=== PATIENT | male | born 1980 | race Two or more races ===

== ENCOUNTER 2017-01-07 22:16 | Emergency (ER) | payer BC ==
[~2017-01-07 22:16] MED LIST: AMLO10TA4 PO; POTA10TA PO
[2017-01-07 23:09] LABS: BASO # 0.1 x10^3/uL (0.0-0.2); BASO % 1 % (0-3); EOS % 2 % (0-3); HEMATOCRIT 46.5 % (39.0-53.0); HEMOGLOBIN 16.1 g/dL (13.0-17.5); LYMPH # 3.4 x10^3/uL (1.0-4.8); LYMPH % 33 % (24-48); MEAN CORPUSCULAR HEMOGLOBIN 30 pg (25-35); MEAN CORPUSCULAR HGB CONC 35 g/dL (31-37); MEAN CORPUSCULAR VOLUME 88 fL (79-100); MONO % 7 % (0-9); NEUT % 57 % (31-73); PLATELET COUNT 178 x10^3/uL (140-400); RED BLOOD COUNT 5.32 x10^6/uL (4.30-5.70); WHITE BLOOD COUNT 10.3 x10^3/uL (4.0-11.0)
[2017-01-07 23:21] LABS: CALCIUM 8.7 mg/dL (8.5-10.1); CREATININE 1.2 mg/dL (0.7-1.3); GFR 69.3; POTASSIUM 3.2 mmol/L (3.5-5.1)
[2017-01-07 23:24] LABS: BILIRUBIN,URINE NEGATIVE (NEG); GLUCOSE,URINE NEGATIVE (NEG); NITRITE,URINE NEGATIVE (NEG); PH,URINE 7.5; PROTEIN,URINE NEGATIVE (NEG-TRACE)
[2017-01-07 23:27] LABS: ALBUMIN 3.4 g/dL (3.4-5.0); ALBUMIN/GLOBULIN RATIO 0.8 (1.0-1.7); TOTAL BILIRUBIN 0.4 mg/dL (0.2-1.0); TOTAL PROTEIN 7.8 g/dL (6.4-8.2)
[2017-01-07 23:30] LABS: BACTERIA,URINE 0 /HPF (0-FEW); RBC,URINE 0 /HPF (0-2); SQUAMOUS EPITHELIAL CELL,UR FEW /LPF; WBC,URINE 0 /HPF (0-4)
--- NOTE | 2017-01-07 23:48 | PHYS DOC ---
Past Medical History Past Medical History: Hypertension Past Surgical History: Appendectomy Alcohol Use: Occasionally Drug Use: None Adult General Chief Complaint Chief Complaint: HYPERTENSION HPI HPI Patient is a 36 year old male with a history of hypertension comes to the ED with family members with the complaint that he has not been feeling well and his blood pressure has been elevated. Patient has been treated for hypertension with atenolol every morning and also valsartan which he quit taking. This was prescribed about 2 months ago, he took for about 2 weeks but he didn't like it. He thought it made him sleepy. He stopped taking that but he did not go back and talk to his doctor about this. He said his doctor told him to follow up in 6 months. I clarified that his doctor gave him a 6 month follow-up interval in case he was doing fine, since he is having some problems" in a medicine he should follow-up right away. Patient states for 1-2 days he has been feeling somewhat dizzy and hasn't felt well. He has not had any specific complaints, denies chest pain. He took his blood pressure at home with his home monitor which is a wrist monitor and it was 170/112 so he came to the ED. He did not bring his medications with him, and I'm not 100% sure but it sounds like his medications are atenolol and valsartan. Patient is [place] speaking but he also speaks pretty good Syriac and he has family members at bedside who also speak both [place] and Syriac. PCP Review of Systems Review of Systems Constitutional: Denies fever or chills [] HENT: Denies nasal congestion or sore throat [] Respiratory: Denies cough or shortness of breath [] Cardiovascular: Denies chest pain GI: Denies abdominal pain, nausea, vomiting, bloody stools or diarrhea [] : Denies dysuria or hematuria [] Musculoskeletal: Denies back pain or joint pain [] Integument: Denies rash or skin lesions [] Neurologic: Denies focal weakness or sensory changes [] Endocrine: Denies polyuria or polydipsia [] Allergies Allergies Allergies Coded Allergies Type Severity Reaction Last Updated Verified No Known Drug Allergies 06/26/16 No Physical Exam Physical Exam Constitutional: Well developed, well nourished, no acute distress, non-toxic appearance. Initial blood pressure 186/113, heart rate 76 HENT: Normocephalic, atraumatic, bilateral external ears normal, nose normal. [] Eyes: conjunctiva normal, no discharge. [] Neck: Normal range of motion, no stridor. [] Cardiovascular:Heart rate regular rhythm, no murmur [] Lungs & Thorax: Bilateral breath sounds clear to auscultation [] Abdomen: Bowel sounds normal, soft, no tenderness, no masses, no pulsatile masses. [] Skin: Warm, dry, no erythema, no rash. [] Extremities: No tenderness, no cyanosis, no clubbing, ROM intact, no edema. [] Neurologic: Alert and oriented X 3, normal motor function, normal sensory function, no focal deficits noted. [] Current Patient Data Vital Signs Vital Signs Date Time Temp Pulse Resp B/P (MAP) Pulse Ox O2 Delivery O2 Flow Rate FiO2 01/07/17 22:38 100.6 67 18 183/113 (136) 100 Room Air 100.6 Lab Values Laboratory Tests Test 01/07/17 23:00 01/07/17 23:16 White Blood Count 10.3 x10^3/uL (4.0-11.0) Red Blood Count 5.32 x10^6/uL (4.30-5.70) Hemoglobin 16.1 g/dL (13.0-17.5) Hematocrit 46.5 % (39.0-53.0) Mean Corpuscular Volume 88 fL (79-100) Mean Corpuscular Hemoglobin 30 pg (25-35) Mean Corpuscular Hemoglobin Concent 35 g/dL (31-37) Red Cell Distribution Width 13.0 % (11.5-14.5) Platelet Count 178 x10^3/uL (140-400) Neutrophils (%) (Auto) 57 % (31-73) Lymphocytes (%) (Auto) 33 % (24-48) Monocytes (%) (Auto) 7 % (0-9) Eosinophils (%) (Auto) 2 % (0-3) Basophils (%) (Auto) 1 % (0-3) Neutrophils # (Auto) 5.9 x10^3uL (1.8-7.7) Lymphocytes # (Auto) 3.4 x10^3/uL (1.0-4.8) Monocytes # (Auto) 0.7 x10^3/uL (0.0-1.1) Eosinophils # (Auto) 0.2 x10^3/uL (0.0-0.7) Basophils # (Auto) 0.1 x10^3/uL (0.0-0.2) Sodium Level 140 mmol/L (136-145) Potassium Level 3.2 mmol/L (3.5-5.1) L Chloride Level 103 mmol/L (98-107) Carbon Dioxide Level 31 mmol/L (21-32) Anion Gap 6 (6-14) Blood Urea Nitrogen 12 mg/dL (8-26) Creatinine 1.2 mg/dL (0.7-1.3) Estimated GFR (Cockcroft-Gault) 69.3 BUN/Creatinine Ratio 10 (6-20) Glucose Level 131 mg/dL (70-99) H Calcium Level 8.7 mg/dL (8.5-10.1) Total Bilirubin 0.4 mg/dL (0.2-1.0) Aspartate Amino Transferase (AST) 25 U/L (15-37) Alanine Aminotransferase (ALT) 62 U/L (16-63) Alkaline Phosphatase 117 U/L (46-116) H Total Protein 7.8 g/dL (6.4-8.2) Albumin 3.4 g/dL (3.4-5.0) Albumin/Globulin Ratio 0.8 (1.0-1.7) L Urine Collection Type Unknown Urine Color Straw Urine Clarity Clear Urine pH 7.5 Urine Specific [place] 1.010 Urine Protein Negative mg/dL (NEG-TRACE) Urine Glucose (UA) Negative mg/dL (NEG) Urine Ketones (Stick) Negative mg/dL (NEG) Urine Blood Negative (NEG) Urine Nitrite Negative (NEG) Urine Bilirubin Negative (NEG) Urine Urobilinogen Dipstick 1.0 mg/dL (0.2 mg/dL) Urine Leukocyte Esterase Negative (NEG) Urine RBC 0 /HPF (0-2) Urine WBC 0 /HPF (0-4) Urine Squamous Epithelial Cells Few /LPF Urine Bacteria 0 /HPF (0-FEW) Urine Mucus Slight /LPF Laboratory Tests 01/07/17 23:00 Laboratory Tests 01/07/17 23:00 EKG EKG 12-lead EKG read by me. Sinus rhythm. Heart rate 73. There are no acute ST or T wave changes indicative of ischemia or infarction. No STEMI. 2254 [] Radiology/Procedures Radiology/Procedures [] Course & Med Decision Making Course & Med Decision Making Pertinent Labs and Imaging studies reviewed. (See chart for details) 36-year-old male who comes to the ED with elevated blood pressure. He has known hypertension and he has not been taking the medication as prescribed by his primary care doctor. I advised the patient we will check some labs and watch his blood pressure in the ED, he is agreeable to that plan. EKG, labs unremarkable in the ED. He rested and visited with family and without any treatment, his blood pressure came down to 150/96. I discussed with the patient and his family that while this blood pressure is too high, it is not dangerously high, and I would really prefer that the patient discussed with his primary care physician what additional medication would be recommended for his blood pressure treatment. I ask him to call tomorrow and make an appointment for follow-up as soon as possible. Continue to take atenolol as prescribed until then. Pt understands the plan. [] Dragon Disclaimer Dragon Disclaimer This electronic medical record was generated, in whole or in part, using a voice recognition dictation system. Departure Departure Impression: Primary Impression: Hypertension Disposition: 01 HOME, SELF-CARE Condition: STABLE Referrals: REJI SANDERS MD (PCP) Patient Instructions: Hypertension, [id number] Additional Instructions: As we discussed, it's very important to follow-up with your primary care doctor for treatment of your elevated blood pressure. Call in the morning to make an appointment for follow-up with Dr. Sanders. Your blood pressure here in the ED was 186/113 when you came in, and came down to 165/99 after you rested, without treatment here in the ED. As we discussed, that is too high, but it is not dangerously high and I would like for your primary care doctor to decide what additional medication you should be prescribed for your blood pressure. Continue to take atenolol as prescribed until you see Dr. Sanders. CRISTINA RODRIGUEZ MD January 07, 2017 23:48
[2017-01-08 00:15] VITALS: BP 152/96
--- NOTE | 2017-01-08 08:12 | EKG ---
[facility] [address] [place] [address] Test Date: 2017-01-07 Test Time: 22:54:45 Pat Name: JACOB MUÑOZ Department: Room: Gender: M [employer]: : 1980 Requested By: CRISTINA RODRIGUEZ Order Number: [id number] Reading MD: Measurements Intervals Reading Rate: 73 P: 35 MO: 136 QRS: 17 QRSD: 90 T: 17 QT: 386 QTc: 429 Interpretive Statements SINUS RHYTHM INCOMPLETE RIGHT BUNDLE BRANCH BLOCK QRS(T) CONTOUR ABNORMALITY CONSIDER ANTEROLATERAL MYOCARDIAL DAMAGE RI6.01 No previous ECG available for comparison
== END 2017-01-08 00:20 | disposition home or self-care (01) ==
LOC: ER 22:16
DX: I10 Essential (primary) hypertension (principal)
CPT/HCPCS: 36415; 80053; 81001; 85027; 93005; 99285-25

== ENCOUNTER 2017-07-21 21:38 | Emergency (ER) | payer BC ==
[~2017-07-21] VITALS: Ht 172.7 cm; Wt 108.0 kg
--- NOTE | 2017-07-21 21:56 | PHYS DOC ---
Past Medical History Past Medical History: Hypertension Past Surgical History: Appendectomy Alcohol Use: Occasionally Drug Use: None Adult General Chief Complaint Chief Complaint: ABDOMINAL PAIN HPI HPI Patient is a 37 year old Kitt[place]-speaking male who presents with epigastric pain awaking from sleep at approximately 3 hours prior to ED arrival. Prior to sleeping, patient ate lunch. Pain is described as sharp and cramping radiates to right upper quadrant and also to right shoulder blade. It is associated with nausea but not vomiting. Pain is worse with palpation and movement. Patient denies chest pain, shortness of breath, and sweats. No constipation or diarrhea. No fever chills or sweats. No other acute symptoms or complaints. Prior appendectomy. No other abdominal surgeries. Patient's accompanied at bedside by spouse. [] Review of Systems Review of Systems Review symptoms as per history of present illness. All other review symptoms are negative. All other systems were reviewed and found to be within normal limits, except as documented in this note. Current Medications Current Medications Current Medications Medications (Trade) Dose Ordered Sig/Giovanna Start Time Stop Time Status Last Admin Dose Admin Clonidine HCl (Catapres) 0.2 mg 1X ONCE 07/21/17 22:15 07/21/17 22:16 DC 07/21/17 22:39 0.2 MG Fentanyl Citrate (Fentanyl 2ml Vial) 75 mcg 1X ONCE 07/21/17 22:15 07/21/17 22:16 DC 07/21/17 22:06 75 MCG Info (Do NOT chart on this entry -- for MONITORING) 1 each PRN DAILY PRN 07/21/17 23:00 07/23/17 22:59 Iohexol (Omnipaque 300 Mg/ml) 75 ml 1X ONCE 07/21/17 23:30 07/21/17 23:31 DC 07/21/17 23:11 75 ML Ondansetron HCl (Zofran) 4 mg PRN Q6HRS PRN 07/21/17 22:00 07/21/17 22:05 4 MG Allergies Allergies Allergies Coded Allergies Type Severity Reaction Last Updated Verified No Known Drug Allergies 06/26/16 No Physical Exam Physical Exam Constitutional: Well developed, well nourished, moderate discomfort secondary to pain. [] HENT: Normocephalic, atraumatic, bilateral external ears normal, oropharynx moist, no oral exudates, nose normal. [] Eyes: PERRLA, EOMI, conjunctiva normal, no discharge. [] Neck: Normal range of motion, no tenderness, supple, no stridor. [] Cardiovascular:Heart rate regular rhythm, no murmur [] Lungs & Thorax: Bilateral breath sounds clear to auscultation [] Abdomen: Bowel sounds normal, soft, nondistended, nonpulsatile, epigastric pain/ right upper quadrant pain and tenderness, voluntary guarding. No rebound rigidity.[] Skin: Warm, dry, no erythema, no rash. [] Extremities: No tenderness, no cyanosis, no clubbing, ROM intact, no edema. [] Neurologic: Alert and oriented X 3, normal motor function, normal sensory function, no focal deficits noted.[] Current Patient Data Vital Signs Vital Signs Date Time Temp Pulse Resp B/P (MAP) Pulse Ox O2 Delivery O2 Flow Rate FiO2 07/21/17 22:39 72 155/105 07/21/17 22:06 18 07/21/17 21:48 98.6 99 Room Air 98.6 Lab Values Laboratory Tests Test 07/21/17 21:53 White Blood Count 11.7 x10^3/uL (4.0-11.0) H Red Blood Count 5.17 x10^6/uL (4.30-5.70) Hemoglobin 15.6 g/dL (13.0-17.5) Hematocrit 45.8 % (39.0-53.0) Mean Corpuscular Volume 89 fL (79-100) Mean Corpuscular Hemoglobin 30 pg (25-35) Mean Corpuscular Hemoglobin Concent 34 g/dL (31-37) Red Cell Distribution Width 12.9 % (11.5-14.5) Platelet Count 218 x10^3/uL (140-400) Neutrophils (%) (Auto) 73 % (31-73) Lymphocytes (%) (Auto) 20 % (24-48) L Monocytes (%) (Auto) 6 % (0-9) Eosinophils (%) (Auto) 1 % (0-3) Basophils (%) (Auto) 1 % (0-3) Neutrophils # (Auto) 8.5 x10^3uL (1.8-7.7) H Lymphocytes # (Auto) 2.3 x10^3/uL (1.0-4.8) Monocytes # (Auto) 0.7 x10^3/uL (0.0-1.1) Eosinophils # (Auto) 0.1 x10^3/uL (0.0-0.7) Basophils # (Auto) 0.1 x10^3/uL (0.0-0.2) Segmented Neutrophils % 81 % (35-66) H Lymphocytes % 11 % (24-48) L Atypical Lymphocytes % (Manual) 2 % (0-0) H Monocytes % 4 % (0-10) Eosinophils % 1 % (0-5) Basophils % 1 % (0-3) Platelet Estimate Adequate (ADEQUATE) Sodium Level 140 mmol/L (136-145) Potassium Level 3.8 mmol/L (3.5-5.1) Chloride Level 104 mmol/L (98-107) Carbon Dioxide Level 30 mmol/L (21-32) Anion Gap 6 (6-14) Blood Urea Nitrogen 12 mg/dL (8-26) Creatinine 1.0 mg/dL (0.7-1.3) Estimated GFR (Cockcroft-Gault) 85.0 BUN/Creatinine Ratio 12 (6-20) Glucose Level 143 mg/dL (70-99) H Calcium Level 9.1 mg/dL (8.5-10.1) Total Bilirubin 0.4 mg/dL (0.2-1.0) Aspartate Amino Transferase (AST) 23 U/L (15-37) Alanine Aminotransferase (ALT) 48 U/L (16-63) Alkaline Phosphatase 97 U/L (46-116) Troponin I Quantitative < 0.017 ng/mL (0.000-0.055) Total Protein 7.4 g/dL (6.4-8.2) Albumin 3.3 g/dL (3.4-5.0) L Albumin/Globulin Ratio 0.8 (1.0-1.7) L Lipase 187 U/L (73-393) Laboratory Tests 07/21/17 21:53 Laboratory Tests 07/21/17 21:53 EKG EKG [EKG: Normal sinus rhythm, rate 67, on specific ST-T wave changes, QTC normal. Interpretation by ED physician.] Radiology/Procedures Radiology/Procedures [CT abdomen pelvis: No acute intra-abdominal/pelvic process per radiology report. Chest x-ray: No acute process on ED read. Course & Med Decision Making Course & Med Decision Making Pertinent Labs and Imaging studies reviewed. (See chart for details) [Pain resolved with tx. Blood pressure improved. Lab work/imaging non-dx. Reglan supportive care with PCP follow-up for further management. Return precautions reviewed.] Dragon Disclaimer Dragon Disclaimer This electronic medical record was generated, in whole or in part, using a voice recognition dictation system. Departure Departure Impression: Primary Impression: Abdominal pain Disposition: HOME, SELF-CARE Condition: GOOD Referrals: REJI LEHMAN MD (PCP) KRISTEN LIRA DO Jul 21, 2017 21:56
[2017-07-21] MEDS ORDERED: ONDANSETRON PF 4 MG/2 ML VIAL. IV PRN (22:00)
[2017-07-21 22:03] LABS: BASO # 0.1 x10^3/uL (0.0-0.2); BASO % 1 % (0-3); EOS % 1 % (0-3); HEMATOCRIT 45.8 % (39.0-53.0); HEMOGLOBIN 15.6 g/dL (13.0-17.5); LYMPH # 2.3 x10^3/uL (1.0-4.8); LYMPH % 20 % (24-48); MEAN CORPUSCULAR HEMOGLOBIN 30 pg (25-35); MEAN CORPUSCULAR HGB CONC 34 g/dL (31-37); MEAN CORPUSCULAR VOLUME 89 fL (79-100); MONO % 6 % (0-9); NEUT % 73 % (31-73); PLATELET COUNT 218 x10^3/uL (140-400); RED BLOOD COUNT 5.17 x10^6/uL (4.30-5.70); RED CELL DISTRIBUTION WIDTH 12.9 % (11.5-14.5); WHITE BLOOD COUNT 11.7 x10^3/uL (4.0-11.0)
[2017-07-21] MEDS: cloNIDine HCL 0.1 MG TABLET PO ONE ×2 (22:07→22:39)
[2017-07-21 22:13] LABS: CALCIUM 9.1 mg/dL (8.5-10.1); POTASSIUM 3.8 mmol/L (3.5-5.1)
[2017-07-21] MEDS ORDERED: fentaNYL PF VIAL 100 MCG/2 ML VIAL IV ONE (22:15)
[2017-07-21 22:19] LABS: ALBUMIN 3.3 g/dL (3.4-5.0); ALBUMIN/GLOBULIN RATIO 0.8 (1.0-1.7); TOTAL BILIRUBIN 0.4 mg/dL (0.2-1.0); TOTAL PROTEIN 7.4 g/dL (6.4-8.2)
[2017-07-21 22:46] VITALS: BP 141/90
[2017-07-21 22:55] LABS: % BASOS 1 % (0-3); % EOS 1 % (0-5); PLT ESTIMATE ADEQUATE (ADEQUATE)
[2017-07-21] MEDS ORDERED: CONTRAST GIVEN MC PRN (23:00)
--- NOTE | 2017-07-21 23:28 | RAD ---
CT SCAN OF THE ABDOMEN AND PELVIS WITH IV CONTRAST. History: Periumbilical abdominal pain Comparison:None. Procedure: Contiguous axial images of the abdomen and pelvis were performed after the administration of 75 cc of Omni 300 IV contrast and without oral contrast. CT Abdomen with contrast: Findings: Liver: Unremarkable Spleen: Unremarkable Pancreas: Unremarkable Adrenal Glands: Unremarkable Kidneys: Unremarkable There is no mass or lymphadenopathy. There is no free air. There is no free fluid. The appendix is not identified. Impression: No acute findings. End Impression CT Pelvis with Contrast: Findings: The urinary bladder appears normal. There is no free fluid. There is no lymphadenopathy. Impression: No acute findings. PQRS Compliance Statement: One or more of the following individualized dose reduction techniques were utilized for this examination: 1. Automated exposure control 2. Adjustment of the mA and/or kV according to patient size 3. Use of iterative reconstruction technique Electronically signed by: Joshua Osorio III, MD (07/21/2017 11:25 PM) [facility]
[2017-07-21] MEDS ORDERED: IOHEXOL 300 MG/ML 100ML VIAL. IV ONE (23:30)
--- NOTE | 2017-07-22 06:16 | EKG ---
[facility] [address] [place] [address] Test Date: 2017-07-21 Test Time: 21:59:52 Pat Name: JACOB MUÑOZ Department: Room: Gender: M [employer]: : 1980 Requested By: KRISTEN LIRA Order Number: [id number] Reading MD: Osei Alvarez Measurements Intervals [place] Rate: 67 P: 38 [place]: 138 QRS: 14 QRSD: 86 T: 13 QT: 404 QTc: 430 Interpretive Statements SINUS RHYTHM QRS(T) CONTOUR ABNORMALITY CONSIDER ANTEROLATERAL MYOCARDIAL DAMAGE POSSIBLY ABNORMAL ECG Electronically Signed On 07-27-2017 14:43:11 [employer]ALLOW [employer]ER by Osei Alvarez
--- NOTE | 2017-07-22 07:47 | RAD ---
Portable chest, 07/21/2017: History: Chest pain The heart size and pulmonary vascularity are normal. The lungs are clear. There is no evidence of pleural fluid. IMPRESSION: No acute cardiopulmonary abnormality is detected.
== END 2017-07-22 00:34 | disposition home or self-care (01) ==
LOC: ER 21:38
DX: R10.13 Epigastric pain (principal); R11.0 Nausea; R10.11 Right upper quadrant pain; I10 Essential (primary) hypertension; Z90.49 Acquired absence of other specified parts of digestive tract
CPT/HCPCS: 36415; 71010; 74177; 80053; 83690; 84484; 85007; 85025; 93005; 96374; 96375; 99285; J2405; J3010; Q9967

== ENCOUNTER 2018-06-24 20:40 | Emergency (ER) | payer BC, OTHER ==
[~2018-06-24] VITALS: Ht 167.6 cm; Wt 105.2 kg
[2018-06-24] MEDS ORDERED: IV NORMAL SALINE 1000ML BAG 1,000 ML IV ONE (21:30)
[2018-06-24 21:45] LABS: BASO # 0.1 x10^3/uL (0.0-0.2); BASO % 1 % (0-3); EOS # 0.1 x10^3/uL (0.0-0.7); EOS % 1 % (0-3); HEMOGLOBIN 15.2 g/dL (13.0-17.5); LYMPH # 1.7 x10^3/uL (1.0-4.8); LYMPH % 17 % (24-48); MEAN CORPUSCULAR HEMOGLOBIN 31 pg (25-35); MEAN CORPUSCULAR HGB CONC 35 g/dL (31-37); MEAN CORPUSCULAR VOLUME 86 fL (79-100); MONO # 0.6 x10^3/uL (0.0-1.1); MONO % 6 % (0-9); NEUT # 7.6 x10^3uL (1.8-7.7); NEUT % 76 % (31-73); PLATELET COUNT 189 x10^3/uL (140-400); RED BLOOD COUNT 4.99 x10^6/uL (4.30-5.70); RED CELL DISTRIBUTION WIDTH 12.8 % (11.5-14.5)
[2018-06-24 21:48] LABS: BILIRUBIN,URINE NEGATIVE (NEG); CLARITY,URINE CLEAR; COLOR,URINE YELLOW; NITRITE,URINE NEGATIVE (NEG); PH,URINE 7.5; PROTEIN,URINE NEGATIVE (NEG-TRACE); UROBILINOGEN,URINE 0.2 mg/dL (0.2 mg/dL)
[2018-06-24 21:56] LABS: BACTERIA,URINE 0 /HPF (0-FEW); HYALINE CASTS, URINE OCCASIONAL /HPF; RBC,URINE OCC /HPF (0-2); WBC,URINE OCC /HPF (0-4)
[2018-06-24 21:58] LABS: CALCIUM 8.6 mg/dL (8.5-10.1); CREATININE 1.1 mg/dL (0.7-1.3); GFR 76.2; POTASSIUM 3.6 mmol/L (3.5-5.1)
[2018-06-24 22:03] LABS: ALBUMIN 2.9 g/dL (3.4-5.0); DIRECT BILIRUBIN 0.1 mg/dL (0.0-0.2); INFLUENZA A PATIENT NEGATIVE (NEGATIVE); INFLUENZA B PATIENT NEGATIVE (NEGATIVE); TOTAL BILIRUBIN 0.3 mg/dL (0.2-1.0); TOTAL PROTEIN 6.5 g/dL (6.4-8.2)
[2018-06-24] MEDS ORDERED: IV NORMAL SALINE 500ML BAG 500 ML IV ONE (22:30)
[2018-06-24 22:41] VITALS: BP 158/95
[2018-06-24 22:43] LABS: FREE T4 1.28 ng/dL (0.76-1.46); THYROID STIM HORMONE (TSH) 0.963 uIU/mL (0.358-3.74)
--- NOTE | 2018-06-25 01:32 | PHYS DOC ---
Past Medical History Past Medical History: Other Additional Past Medical Histor: pre diabetes Past Surgical History: No Surgical History Alcohol Use: None Drug Use: None Adult General Chief Complaint Chief Complaint: FATIGUE HPI HPI Patient is a 37 year old male who presents with multiple vague complaints. Patient primarily complains of loss of energy and some general malaise over the last week. 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 Patient has been seen by his primary care physician and had some sort of labs completed which she states were normal. He has a follow-up appointment with his doctor tomorrow. This evening, he continued to have symptoms including general dizziness and generalized weakness. He did not have headaches or vision changes. He has no neurologic complaints. No recent fever. No respiratory symptoms. He has been eating and drinking normally. He has been eliminating normally. Review of Systems Review of Systems Constitutional: Denies fever or chills Eyes: Denies change in visual acuity HENT: Denies nasal congestion or sore throat Respiratory: Denies cough or shortness of breath Cardiovascular: No additional information not addressed in HPI GI: Denies abdominal pain, nausea, vomiting, bloody stools or diarrhea Musculoskeletal: Denies back pain Integument: Denies rash or skin lesions Neurologic: Denies headache, focal weakness Endocrine: Denies polyuria or polydipsia All other systems were reviewed and found to be within normal limits, except as documented in this note. Current Medications Current Medications Current Medications Medications (Trade) Dose Ordered Sig/Giovanna Start Time Stop Time Status Last Admin Dose Admin Sodium Chloride 500 ml @ 500 mls/hr 1X ONCE 06/24/18 22:30 06/24/18 23:09 DC 06/24/18 22:40 500 MLS/HR Allergies Allergies Allergies Coded Allergies Type Severity Reaction Last Updated Verified No Known Drug Allergies 06/26/16 No Physical Exam Physical Exam Constitutional: Well developed, well nourished, no acute distress, non-toxic appearance HENT: Normocephalic, atraumatic, bilateral external ears normal, oropharynx moist Eyes: PERRLA, EOMI, conjunctiva normal, no discharge Neck: Normal range of motion, no tenderness, supple Cardiovascular:Heart rate regular rhythm, no murmur Lungs & Thorax: Bilateral breath sounds clear to auscultation Abdomen: Bowel sounds normal, soft, no tenderness Skin: Warm, dry, no erythema Back: No tenderness, no CVA tenderness Extremities: No tenderness, no cyanosis, no clubbing, ROM intact, no edema Neurologic: Alert and oriented X 3, nonfocal neuro exam Psychologic: Affect normal Current Patient Data Vital Signs Vital Signs Date Time Temp Pulse Resp B/P (MAP) Pulse Ox O2 Delivery O2 Flow Rate FiO2 06/24/18 22:41 88 18 158/95 (116) 99 Room Air 06/24/18 21:16 98.1 98.1 Lab Values Laboratory Tests Test 06/24/18 20:45 06/24/18 21:34 Glucose (Fingerstick) 144 mg/dL (70-99) H White Blood Count 10.0 x10^3/uL (4.0-11.0) Red Blood Count 4.99 x10^6/uL (4.30-5.70) Hemoglobin 15.2 g/dL (13.0-17.5) Hematocrit 43.0 % (39.0-53.0) Mean Corpuscular Volume 86 fL (79-100) Mean Corpuscular Hemoglobin 31 pg (25-35) Mean Corpuscular Hemoglobin Concent 35 g/dL (31-37) Red Cell Distribution Width 12.8 % (11.5-14.5) Platelet Count 189 x10^3/uL (140-400) Neutrophils (%) (Auto) 76 % (31-73) H Lymphocytes (%) (Auto) 17 % (24-48) L Monocytes (%) (Auto) 6 % (0-9) Eosinophils (%) (Auto) 1 % (0-3) Basophils (%) (Auto) 1 % (0-3) Neutrophils # (Auto) 7.6 x10^3uL (1.8-7.7) Lymphocytes # (Auto) 1.7 x10^3/uL (1.0-4.8) Monocytes # (Auto) 0.6 x10^3/uL (0.0-1.1) Eosinophils # (Auto) 0.1 x10^3/uL (0.0-0.7) Basophils # (Auto) 0.1 x10^3/uL (0.0-0.2) Urine Collection Type Unknown Urine Color Yellow Urine Clarity Clear Urine pH 7.5 Urine Specific [place] 1.015 Urine Protein Negative mg/dL (NEG-TRACE) Urine Glucose (UA) Negative mg/dL (NEG) Urine Ketones (Stick) Negative mg/dL (NEG) Urine Blood Negative (NEG) Urine Nitrite Negative (NEG) Urine Bilirubin Negative (NEG) Urine Urobilinogen Dipstick 0.2 mg/dL (0.2 mg/dL) Urine Leukocyte Esterase Negative (NEG) Urine RBC Occ /HPF (0-2) Urine WBC Occ /HPF (0-4) Urine Squamous Epithelial Cells None /LPF Urine Bacteria 0 /HPF (0-FEW) Urine Hyaline Casts Occasional /HPF Urine Mucus Slight /LPF Sodium Level 140 mmol/L (136-145) Potassium Level 3.6 mmol/L (3.5-5.1) Chloride Level 102 mmol/L (98-107) Carbon Dioxide Level 30 mmol/L (21-32) Anion Gap 8 (6-14) Blood Urea Nitrogen 11 mg/dL (8-26) Creatinine 1.1 mg/dL (0.7-1.3) Estimated GFR (Cockcroft-Gault) 76.2 Glucose Level 157 mg/dL (70-99) H Calcium Level 8.6 mg/dL (8.5-10.1) Total Bilirubin 0.3 mg/dL (0.2-1.0) Direct Bilirubin 0.1 mg/dL (0.0-0.2) Aspartate Amino Transferase (AST) 18 U/L (15-37) Alanine Aminotransferase (ALT) 35 U/L (16-63) Alkaline Phosphatase 85 U/L (46-116) Troponin I Quantitative < 0.017 ng/mL (0.000-0.055) Total Protein 6.5 g/dL (6.4-8.2) Albumin 2.9 g/dL (3.4-5.0) L Thyroid Stimulating Hormone (TSH) 0.963 uIU/mL (0.358-3.74) Free Thyroxine 1.28 ng/dL (0.76-1.46) Influenza Type A Antigen Negative (NEGATIVE) Influenza Type B Antigen Negative (NEGATIVE) Laboratory Tests 06/24/18 21:34 Laboratory Tests 06/24/18 21:34 EKG EKG [] Radiology/Procedures Radiology/Procedures [] Course & Med Decision Making Course & Med Decision Making Pertinent Labs and Imaging studies reviewed. (See chart for details) Patient is evaluated in the emergency department for some vague complaints. His physical exam was unremarkable. His lab panel also did not reveal any acute findings. Thyroid studies were checked and were normal. Troponin was normal. BMP was normal. In the emergency department, the patient was given 1 L of normal saline. He did feel like this subjectively made him feel better. He has close follow-up with his primary care doctor already scheduled. He was discharged to home. All of his questions were answered prior to discharge and he was agreeable to the plan of care. Dragon Disclaimer Dragon Disclaimer This electronic medical record was generated, in whole or in part, using a voice recognition dictation system. Departure Departure Impression: Primary Impression: Fatigue Disposition: 01 HOME, SELF-CARE Condition: GOOD Patient Instructions: Fatigue, Viral Syndrome Additional Instructions: You were seen in the ER for fatigue. Your CBC, liver panel, thyroid panel, troponin, BMP were normal. your flu test was negative. f/u with your PCP. Rest at home and push fluids. NICOL HELMS DO Jun 25, 2018 01:32
== END 2018-06-24 23:09 | disposition home or self-care (01) ==
LOC: ER 20:40
DX: R53.81 Other malaise (principal); R42 Dizziness and giddiness; R53.1 Weakness
CPT/HCPCS: 36415; 80048; 80076; 81001; 82962; 84439; 84443; 84484; 85025; 87804; 96360; 99284; J7030; J7040; 96361

== ENCOUNTER → 2019-02-17 | Outpatient (CLI) | payer OTHER ==
--- NOTE | 2019-02-17 09:48 | RAD ---
Complete abdominal ultrasound 02/17/2019 9:00 AM Clinical History: Abdominal pain Technique: Ultrasound examination of the abdomen was performed, and multiple static images were submitted for review. Comparison: CT of the abdomen and pelvis July 13, 2017 Findings: The pancreas is poorly visualized. Aorta and IVC are poorly visualized. The liver is partially visualized. The liver appears grossly normal in size measuring 17.5 cm longitudinally. No intrahepatic biliary dilatation is seen. Common bile duct is nondilated at 3 mm. There is no evidence of gallbladder wall thickening or pericholecystic fluid. 5 mm echogenic focus noted along the gallbladder wall. This may be a small adherent stone or a cholesterol polyp. The right kidney is grossly normal in appearance measuring 12.9 cm in length. Left kidney is poorly visualized but measures approximately 11.3 cm in length. No gross and normalities are identified involving left kidney. The spleen is poorly visualized. Impression: 1.Limited exam without evidence of acute intra-abdominal abnormality 2. 5 mm stone versus small cholesterol polyp in the gallbladder Electronically signed by: Carlito Herbert MD (02/17/2019 9:44 AM) [id number]
== END | disposition home or self-care (01) ==
LOC: US 08:39
PROVIDERS: ATTEND Family Medicine
DX: R10.84 Generalized abdominal pain (principal)
CPT/HCPCS: 76700

== ENCOUNTER 2019-03-31 06:36 | Day surgery (SDC) | payer OTHER ==
[~2019-03-31] VITALS: Ht 167.6 cm; Wt 108.0 kg
[~2019-03-31 06:36] MED LIST changes: +ACETAMINOPHEN 500 MG TABLET PO PRN; +INDOCYANINE GREEN 7.5 MG in TOTAL VOLUME SYRINGE 3 ML IVP ONE; +ceFAZolin 2GM PREMIX 2 GM/50 ML BAG IV ONE
[2019-03-31] MEDS ORDERED: INSULIN LISPRO 100 UNIT/ML 3ML VIAL for OP,RR ONLY. SQ PRN (06:45)
[2019-03-31] MEDS ORDERED: BYSTOLIC10 MG PO (06:57)
[2019-03-31] MEDS ORDERED: METF750T2 PO (06:57)
[2019-03-31] MEDS ORDERED: ASPI81TA50 PO (06:57)
[2019-03-31] MEDS ORDERED: PANT20TA2 PO (06:57)
[2019-03-31] MEDS ORDERED: ATOR10TA PO (06:57)
[2019-03-31] MEDS ORDERED: AMLO5TAB10 PO (06:57)
[2019-03-31] MEDS ORDERED: fentaNYL PF VIAL 100 MCG/2 ML VIAL IV PRN ×2 (07:00)
[2019-03-31] MEDS ORDERED: ONDANSETRON PF 4 MG/2 ML VIAL. IV PRN (07:00)
[2019-03-31] MEDS ORDERED: LIDOCAINE 1% PF 2 ML VIAL. ID PRN (07:00)
[2019-03-31] MEDS ORDERED: HYDROmorphone 2 MG/ML VIAL IV PRN (07:00)
[2019-03-31] MEDS ORDERED: PROCHLORPERAZINE 10 MG/2 ML VIAL. IV PRN (07:00)
[2019-03-31] MEDS ORDERED: IV RINGERS,LACTATED 1000ML 1,000 ML IV SCH (07:00)
[2019-03-31] MEDS ORDERED: MORPHINE SULFATE 2 MG/ML VIAL. IV PRN (07:00)
[2019-03-31] MEDS ORDERED: SURGICEL HEMOSTAT 4X8 EACH. ONE (07:02)
[2019-03-31] MEDS ORDERED: BUPIVACAINE MPF 0.5% 30 ML VIAL. ONE (07:02)
[2019-03-31] MEDS ORDERED: LIDOCAINE 2% PF 5 ML VIAL. ONE (08:04)
[2019-03-31] MEDS ORDERED: DEXAMETHASONE SOD PHOS 4 MG/ML VIAL ONE (08:04)
[2019-03-31] MEDS ORDERED: ROCURONIUM 50 MG/5 ML VIAL. ONE (08:04)
[2019-03-31] MEDS ORDERED: PROPOFOL 20 ML IV ONE ×2 (08:04→09:49)
[2019-03-31] MEDS ORDERED: ONDANSETRON PF 4 MG/2 ML VIAL. ONE (08:04)
[2019-03-31] MEDS ORDERED: MIDAZOLAM HCL/PF 2 MG/2 ML VIAL. ONE (08:05)
[2019-03-31] MEDS ORDERED: fentaNYL PF VIAL 100 MCG/2 ML VIAL ONE ×3 (08:05→10:04)
[2019-03-31] MEDS ORDERED: NEOSTIGMINE METHYLSULFATE 5 MG/5 ML SYRINGE. ONE (09:22)
[2019-03-31] MEDS ORDERED: NEOSTIGMINE 10 MG/10 ML VIAL. ONE (09:22)
[2019-03-31] MEDS ORDERED: GLYCOPYRROLATE 1 MG/5 ML VIAL. ONE (09:23)
[2019-03-31] MEDS ORDERED: SEVOFLURANE 61 TO 120 MINUTES. IH ONE (09:24)
--- NOTE | 2019-03-31 10:04 | PDOC4 ---
Operative Note Operative Note Date: 03/31/2019 Preoperative diagnosis: Chronic cholecystitis Postoperative diagnosis: Same Specimen: Gallbladder Surgeon: Randolph Dictation: Patient is a 38-year-old male with a right upper quadrant abdominal pain ultrasound showing gallstones. Procedure of robotic-assisted laparoscopic cholecystectomy was explained to the patient detail risk benefits were also discussed including bleeding infection injury to intra-abdominal contents possibly necessitating further open operations alternatives to this procedure also discussed with patient is seemed to understand and gave both verbal and written consent to have the procedure performed. Patient was taken to the operating room placed in supine position general anesthesia was initiated once patient was sleep and intubated his abdomen was prepped and draped usual sterile fashion using ChloraPrep and area just below the umbilicus was injected with quarter percent Marcaine incision was made 11 blade scalpel varies needle was placed within the abdomen creating pneumoperitoneum once this complete 8mm da Esteban port was placed and the da Esteban camera was placed within the abdomen which was inspected no other abdomen maladies were noted 8mm da Esteban port was placed in the right mid abdomen and one in the left mid abdomen that eventually robotic then brought in and docked all port sites. A small alligator grasper was then placed through the right upper quadrant and the dome of the gallbladder was grasped retracted cephalad with this grasper. Surgeon went to the robotic console using a grasper and hook cautery the infundibular gallbladder is grasped retracted laterally exposing the triangle adherent tissues of the triangle were taken down with blunt and sharp dissection exposing the cystic duct and cystic artery both were doubly clipped and transected the gallbladder is taken off the liver with a clot cautery right upper quadrant was irrigated and suctioned dry surgical back to the operative field the robot was undocked and using a Endo Catch bag was placed through the right abdominal port and gallbladder was placed in Endo Catch bag and removed from the lateral port site. Ports were all removed the pneumoperitoneum reduced. Port sites were all closed for septic and a Monocryl Mastisol Steri-Strips and island dressings were applied. Patient was awakened and bated operating room taken to recovery in stable condition all sponge instrument needle counts listed as correct estimate blood loss 5 mL ALEXUS SANTIAGO MD Mar 31, 2019 10:04
--- NOTE | 2019-03-31 10:06 | DISCH ---
DISCHARGE INSTRUCTIONS Condition on Discharge Condition on Discharge: Stable Activity After Discharge Activity Instructions for Disc: Avoid exertion Other activity instructions: no lifting more than 20 pounds for 2 weeks Diet after Discharge Diet after Discharge: Low Fat Wound Incision Care Other wound/incision instructi: May shower in 24 hours Contacting the after DC Call your doctor for: If your condition worsens Follow-Up Follow up with: Dr. Santiago in 2 weeks ALEXUS SANTIAGO MD Mar 31, 2019 10:06
[2019-03-31] MEDS ORDERED: OXYC1TAB15 PO (10:58)
[2019-03-31] MEDS ORDERED: oxyCODONE/APAP 5/325 1 TAB TABLET PO PRN ×3 (11:00)
[2019-03-31 11:05] VITALS: BP 153/91
--- NOTE | 2019-04-04 14:07 | PATHOLOGY ---
[facility] Accession Number: [id number] . 01 Material submitted: . gallbladder - GALLBLADDER . 01 Clinical history: . Cholelithiasis . 02 Diagnosis: Gallbladder, cholecystectomy: - Cholelithiasis. - Polypoid cholesterolosis, focal. - Chronic cholecystitis. . ([facility]:mm; 04/04/2019) [facility]/04/04/2019 . 02 Comment: There is no evidence of malignancy. . ([facility]; 04/04/2019) . 02 Electronically signed: . Nain Murphy MD, Pathologist NPI- [id number] . 01 Gross description: . Received in formalin labeled "Phi Li, gallbladder," is a gallbladder measuring 7.5 x 2.8 x 1.4 cm in greatest dimensions. The serosal surface is wrinkled to shaggy, blue-green to focally hemorrhagic and largely adipose-covered in appearance. Multiple foci of dark green discoloration are also noted on the serosal surface. A defect is present at the fundal aspect of the hepatic surface, measuring 0.8 x 0.7 cm and extending to within 5.8 cm of the infundibulum. Opening the specimen reveals a granular, light-dark green mucosa measuring 0.1 cm in thickness, with a gallbladder wall thickness of up to 0.4 cm including attached adipose tissue. Multiple pale green-yellow possible polyps are noted on the mucosal surface, measuring up to 0.2 cm in maximum dimension and extending to within 2.4 cm of the infundibulum. A single calculus is present within the infundibulum that is black and granular in appearance, measuring 0.4 cm in maximum dimension. Sign Wirer sections of the infundibulum, body and fundus are submitted in cassette A1, to representatively include the serosal surface discolorations, hepatic surface defect and possible polyps. ([facility]; 04/01/2019) XDC/XDC . 02 Pathologist provided ICD-10: K80.10, K82.4 . 02 CPT . 445592 Specimen Comment: A courtesy copy of this report has been sent to Specimen Comment: [phone], . Specimen Comment: Report sent to / DR LEHMAN Performed at: 01 [facility] [address], [place] [id number] MD Amado Guan MD Phone: [phone] Performed at: 02 [facility] [address] [place], [place] [id number] MD Nain Murphy MD Phone: [phone]
== END 2019-03-31 11:40 | disposition home or self-care (01) ==
LOC: SURG 06:36
PROVIDERS: ATTEND Surgery
DX: K80.10 Calculus of gallbladder with chronic cholecystitis without obstruction (principal); I10 Essential (primary) hypertension; E78.5 Hyperlipidemia, unspecified; K21.9 Gastro-esophageal reflux disease without esophagitis; E11.9 Type 2 diabetes mellitus without complications; J45.909 Unspecified asthma, uncomplicated; Z72.89 Other problems related to lifestyle; Z79.82 Long term (current) use of aspirin; Z79.899 Other long term (current) drug therapy; Z98.890 Other specified postprocedural states
CPT/HCPCS: 47562; 82962; A7015; J0696; J1100; J2001; J2250; J2405; J2704; J2710; J3010; J3490; J7030

== ENCOUNTER 2019-08-24 23:13 | Emergency (ER) | payer OTHER ==
[~2019-08-24] VITALS: Ht 172.7 cm; Wt 108.9 kg
[~2019-08-24 23:13] MED LIST changes: -ACETAMINOPHEN 500 MG TABLET PO PRN; +AMLO5TAB10 PO; +ASPI81TA50 PO; +ATOR10TA PO; +BYSTOLIC10 MG PO; -INDOCYANINE GREEN 7.5 MG in TOTAL VOLUME SYRINGE 3 ML IVP ONE; +METF750T39 PO; +OXYC1TAB15 PO; +PANT20TA2 PO; -ceFAZolin 2GM PREMIX 2 GM/50 ML BAG IV ONE
[2019-08-24 23:58] LABS: BASO # 0.1 x10^3/uL (0.0-0.2); BASO % 1 % (0-3); EOS # 0.2 x10^3/uL (0.0-0.7); EOS % 2 % (0-3); HEMATOCRIT 45.3 % (39.0-53.0); LYMPH # 4.1 x10^3/uL (1.0-4.8); LYMPH % 38 % (24-48); MEAN CORPUSCULAR HEMOGLOBIN 31 pg (25-35); MEAN CORPUSCULAR HGB CONC 35 g/dL (31-37); MEAN CORPUSCULAR VOLUME 87 fL (79-100); MONO # 0.7 x10^3/uL (0.0-1.1); MONO % 7 % (0-9); NEUT # 5.7 x10^3/uL (1.8-7.7); NEUT % 53 % (31-73); PLATELET COUNT 209 x10^3/uL (140-400); RED BLOOD COUNT 5.22 x10^6/uL (4.30-5.70); RED CELL DISTRIBUTION WIDTH 12.6 % (11.5-14.5); WHITE BLOOD COUNT 10.8 x10^3/uL (4.0-11.0)
--- NOTE | 2019-08-24 23:58 | PHYS DOC ---
Past Medical History Past Medical History: High Cholesterol, Hypertension, Other Additional Past Medical Histor: pre diabetes (COLIN PACHECO) Past Surgical History: No Surgical History (COLIN PACHECO) Alcohol Use: None Drug Use: None (COLIN PACHECO) Attending Signature I have participated in the care of this patient and I have reviewed and agree with all pertinent clinical information above including history, exam, and recommendations. (ALEJANDRA SMITH MD) Adult General Chief Complaint Chief Complaint: HYPERTENSION HPI HPI Patient is a 39 year old male who is here tonight with hypertension and body tingling. He tells me that he has been under a lot of stress and that his father was just in the hospital for a heart attack and he has been sleeping at his bedside. He was laying down today and started feeling like he had "ants crawling all over him". He states it is a tingling sensation and he took his blood pressure and it was very elevated. He does have prior dx of HTN and is on Bystolic and Atenolol. He denies chest pain, headache, or shortness of breath. He is on Metformin for insulin resistance as well as cholesterol medications. (COLIN PACHECO) Review of Systems Review of Systems Constitutional: Denies fever or chills [] HENT: Denies nasal congestion or sore throat [] Respiratory: Denies cough or shortness of breath [] Cardiovascular: Denies chest pain GI: Denies abdominal pain, nausea, vomiting, bloody stools or diarrhea [] Musculoskeletal: Denies back pain or joint pain [] Integument: Denies rash or skin lesions [] Neurologic: Denies headache, focal weakness. Reports diffuse tingling. Endocrine: Denies polyuria or polydipsia [] All other systems were reviewed and found to be within normal limits, except as documented in this note. (COLIN PACHECO) Current Medications Current Medications Current Medications Medications (Trade) Dose Ordered Sig/Giovanna Start Time Stop Time Status Last Admin Dose Admin Hydralazine HCl (Apresoline Inj) 10 mg 1X ONCE 08/25/19 00:00 08/25/19 00:01 DC 08/24/19 23:53 10 MG Lorazepam (Ativan Inj) 0.5 mg 1X ONCE 08/25/19 00:00 08/25/19 00:01 DC 08/24/19 23:52 0.5 MG Potassium Chloride (Klor-Con) 40 meq 1X ONCE 08/25/19 01:00 08/25/19 01:01 DC 08/25/19 00:37 40 MEQ (ALEJANDRA SMITH MD) Allergies Allergies Allergies Coded Allergies Type Severity Reaction Last Updated Verified No Known Drug Allergies 03/31/19 No (ALEJANDRA SMITH MD) Physical Exam Physical Exam Constitutional: Well developed, well nourished, no acute distress, non-toxic appearance. [] HENT: Normocephalic, atraumatic, bilateral external ears normal, oropharynx moist, no oral exudates, nose normal. [] Eyes: PERRLA, EOMI, conjunctiva normal, no discharge. [] Neck: Normal range of motion, no tenderness, supple, no stridor. [] Cardiovascular:Heart rate regular rhythm, no murmur [] Lungs & Thorax: Bilateral breath sounds clear to auscultation [] Abdomen: Bowel sounds normal, soft, no tenderness, no masses, no pulsatile masses. [] Skin: Warm, dry, no erythema, no rash. [] Back: No tenderness, no CVA tenderness. [] Extremities: No tenderness, no cyanosis, no clubbing, ROM intact, no edema. [] Neurologic: Alert and oriented X 3, normal motor function, normal sensory function, no focal deficits noted. [] Psychologic: Affect normal, judgement normal, mood normal. [] (COLIN PACHECO) Current Patient Data Vital Signs Vital Signs Date Time Temp Pulse Resp B/P (MAP) Pulse Ox O2 Delivery O2 Flow Rate FiO2 08/25/19 00:54 72 08/25/19 00:24 97 08/24/19 23:53 160/106 08/24/19 23:20 98.4 19 Room Air 98.4 (ALEJANDRA SMITH MD) Lab Values Laboratory Tests Test 08/24/19 23:30 White Blood Count 10.8 x10^3/uL (4.0-11.0) Red Blood Count 5.22 x10^6/uL (4.30-5.70) Hemoglobin 16.0 g/dL (13.0-17.5) Hematocrit 45.3 % (39.0-53.0) Mean Corpuscular Volume 87 fL (79-100) Mean Corpuscular Hemoglobin 31 pg (25-35) Mean Corpuscular Hemoglobin Concent 35 g/dL (31-37) Red Cell Distribution Width 12.6 % (11.5-14.5) Platelet Count 209 x10^3/uL (140-400) Neutrophils (%) (Auto) 53 % (31-73) Lymphocytes (%) (Auto) 38 % (24-48) Monocytes (%) (Auto) 7 % (0-9) Eosinophils (%) (Auto) 2 % (0-3) Basophils (%) (Auto) 1 % (0-3) Neutrophils # (Auto) 5.7 x10^3/uL (1.8-7.7) Lymphocytes # (Auto) 4.1 x10^3/uL (1.0-4.8) Monocytes # (Auto) 0.7 x10^3/uL (0.0-1.1) Eosinophils # (Auto) 0.2 x10^3/uL (0.0-0.7) Basophils # (Auto) 0.1 x10^3/uL (0.0-0.2) Sodium Level 138 mmol/L (136-145) Potassium Level 2.7 mmol/L (3.5-5.1) *L Chloride Level 101 mmol/L (98-107) Carbon Dioxide Level 29 mmol/L (21-32) Anion Gap 8 (6-14) Blood Urea Nitrogen 9 mg/dL (8-26) Creatinine 1.0 mg/dL (0.7-1.3) Estimated GFR (Cockcroft-Gault) 84.1 BUN/Creatinine Ratio 9 (6-20) Glucose Level 107 mg/dL (70-99) H Calcium Level 8.3 mg/dL (8.5-10.1) L Magnesium Level 1.9 mg/dL (1.8-2.4) Total Bilirubin 0.5 mg/dL (0.2-1.0) Aspartate Amino Transferase (AST) 22 U/L (15-37) Alanine Aminotransferase (ALT) 55 U/L (16-63) Alkaline Phosphatase 119 U/L (46-116) H Creatine Kinase 141 U/L (39-308) Creatine Kinase MB (Mass) 1.2 ng/mL (0.0-3.6) Creatine Kinase MB Relative Index 0.9 % (0-4) Troponin I Quantitative < 0.017 ng/mL (0.000-0.055) MI-Nuf-R-Type Natriuretic Peptide 53 pg/mL (0-124) Total Protein 7.3 g/dL (6.4-8.2) Albumin 3.3 g/dL (3.4-5.0) L Albumin/Globulin Ratio 0.8 (1.0-1.7) L Laboratory Tests 08/24/19 23:30 Laboratory Tests 08/24/19 23:30 (ALEJANDRA SMITH MD) Lab Values Laboratory Tests Test 08/24/19 23:30 White Blood Count 10.8 x10^3/uL (4.0-11.0) Red Blood Count 5.22 x10^6/uL (4.30-5.70) Hemoglobin 16.0 g/dL (13.0-17.5) Hematocrit 45.3 % (39.0-53.0) Mean Corpuscular Volume 87 fL (79-100) Mean Corpuscular Hemoglobin 31 pg (25-35) Mean Corpuscular Hemoglobin Concent 35 g/dL (31-37) Red Cell Distribution Width 12.6 % (11.5-14.5) Platelet Count 209 x10^3/uL (140-400) Neutrophils (%) (Auto) 53 % (31-73) Lymphocytes (%) (Auto) 38 % (24-48) Monocytes (%) (Auto) 7 % (0-9) Eosinophils (%) (Auto) 2 % (0-3) Basophils (%) (Auto) 1 % (0-3) Neutrophils # (Auto) 5.7 x10^3/uL (1.8-7.7) Lymphocytes # (Auto) 4.1 x10^3/uL (1.0-4.8) Monocytes # (Auto) 0.7 x10^3/uL (0.0-1.1) Eosinophils # (Auto) 0.2 x10^3/uL (0.0-0.7) Basophils # (Auto) 0.1 x10^3/uL (0.0-0.2) Sodium Level 138 mmol/L (136-145) Potassium Level 2.7 mmol/L (3.5-5.1) *L Chloride Level 101 mmol/L (98-107) Carbon Dioxide Level 29 mmol/L (21-32) Anion Gap 8 (6-14) Blood Urea Nitrogen 9 mg/dL (8-26) Creatinine 1.0 mg/dL (0.7-1.3) Estimated GFR (Cockcroft-Gault) 84.1 BUN/Creatinine Ratio 9 (6-20) Glucose Level 107 mg/dL (70-99) H Calcium Level 8.3 mg/dL (8.5-10.1) L Magnesium Level 1.9 mg/dL (1.8-2.4) Total Bilirubin 0.5 mg/dL (0.2-1.0) Aspartate Amino Transferase (AST) 22 U/L (15-37) Alanine Aminotransferase (ALT) 55 U/L (16-63) Alkaline Phosphatase 119 U/L (46-116) H Creatine Kinase 141 U/L (39-308) Creatine Kinase MB (Mass) 1.2 ng/mL (0.0-3.6) Creatine Kinase MB Relative Index 0.9 % (0-4) Troponin I Quantitative < 0.017 ng/mL (0.000-0.055) MI-Bcz-L-Type Natriuretic Peptide 53 pg/mL (0-124) Total Protein 7.3 g/dL (6.4-8.2) Albumin 3.3 g/dL (3.4-5.0) L Albumin/Globulin Ratio 0.8 (1.0-1.7) L Laboratory Tests 08/24/19 23:30 Laboratory Tests 08/24/19 23:30 (COLIN PACHECO) EKG EKG NSR, no STEMI (COLIN PACHECO) Radiology/Procedures Radiology/Procedures [] (COLIN PACHECO) Course & Med Decision Making Course & Med Decision Making Pertinent Labs and Imaging studies reviewed. (See chart for details) Potassium is very low at 2.7 which certainly could explain his paresthesias. He reports he has had problems with low potassium in the past but he is not currently on a diuretic so unclear etiology for this. Discussed potassium supplements x 1 week and gave him printed out article on potassium rich foods. Pt's BP improved in ER and cardiac testing reassuring. Discussed monitoring BP closely and keeping a BP diary and close f/u with PCP. (COLIN PACHECO) Dragon Disclaimer Dragon Disclaimer This electronic medical record was generated, in whole or in part, using a voice recognition dictation system. (COLIN PACHECO) Departure Departure Impression: Primary Impression: Hypertension Additional Impression: Hypokalemia Disposition: HOME, SELF-CARE Condition: IMPROVED Referrals: REJI LEHMAN MD (PCP) Patient Instructions: Hypertension, Hypokalemia Additional Instructions: Monitor stress and get adequate rest. Your potassium was very low which can make you feel jittery and anxious and make your muscles cramp. Check your blood pressure and record to let your PCP know how it is doing. Eat a potassium rich diet. Scripts Potassium Chloride (KLOR-CON M20) 20 Meq Tab.er.prt 20 MEQ PO DAILY for 7 Days, #7 TAB.SR Prov: COLIN PACHECO 08/25/19 Problem Qualifiers COLIN PACHECO Aug 24, 2019 23:58 ALEJANDRA SMITH MD Aug 26, 2019 07:27
[2019-08-25] MEDS ORDERED: hydrALAZINE 20 MG/ML VIAL. IVP ONE
[2019-08-25 00:13] LABS: ALBUMIN 3.3 g/dL (3.4-5.0); ALBUMIN/GLOBULIN RATIO 0.8 (1.0-1.7); CALCIUM 8.3 mg/dL (8.5-10.1); GFR 84.1; MAGNESIUM 1.9 mg/dL (1.8-2.4); TOTAL BILIRUBIN 0.5 mg/dL (0.2-1.0); TOTAL PROTEIN 7.3 g/dL (6.4-8.2)
[2019-08-25 00:15] LABS: POTASSIUM 2.7 mmol/L (3.5-5.1)
[2019-08-25] MEDS ORDERED: POTA20TA4 PO (00:53)
[2019-08-25 00:54] VITALS: BP 122/75
[2019-08-25] MEDS ORDERED: POTASSIUM CHLORIDE 20 MEQ TABLET.ER. PO ONE (01:00)
--- NOTE | 2019-08-25 06:04 | EKG ---
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
--- NOTE | 2019-08-25 07:40 | RAD ---
PORTABLE CHEST 1V History: Hypertension, tingling Comparison: July 21, 2017 Findings: Single view of the chest is submitted. There is no infiltrate, pneumothorax, or effusion. The pericardial cardiac silhouette is within normal limits in size. There is similar mild fullness of the right hilar region probably related to the vasculature given unchanged appearance. Impression: 1. There is no radiographic evidence of acute cardiopulmonary disease. Electronically signed by: Jose Luis Rouse MD (08/25/2019 7:37 AM) [facility]
== END 2019-08-25 00:55 | disposition home or self-care (01) ==
LOC: ER 23:13
DX: I10 Essential (primary) hypertension (principal); E87.6 Hypokalemia; E78.00 Pure hypercholesterolemia, unspecified; R20.2 Paresthesia of skin
CPT/HCPCS: 36415; 71045; 80053; 82550; 82553; 83735; 83880; 84484; 85025; 93005; 96374; 96375; 99285; J0360; J2060